=== PATIENT | female | born 1960 | race Hispanic/Latino ===

== ENCOUNTER 2017-12-12 20:25 | Emergency (ER) | payer OTHER, MEDICARE ==
[~2017-12-12 20:25] MED LIST: ALBU8.5H8 IH; DIFL5DRO OU; DULO30CA51 PO; FLUT16H NASAL; GEMF600T3 PO; HYDR25TA PO; INSU100C14 SQ; INSU100V12 SQ; IPRA42SP NS; KETO5DRO82 OD; LISI-617 PO; LOVA20TA3 PO; POLY17PO4 PO; TERB250T51 PO; TYL3 PO
[2017-12-12] MEDS ORDERED: METHYLPREDNISOLONE SOD SUCC 40MG/ML 1ML ONE (21:46)
[2017-12-12] MEDS ORDERED: IPRATROPIUM/ALBUTEROL SULFATE 3 ML SOLUTION IH ONE (21:58)
== END 2017-12-12 22:52 | disposition home or self-care (01) ==
LOC: EDH 20:25
DX: J45.41 Moderate persistent asthma with (acute) exacerbation (principal); E11.9 Type 2 diabetes mellitus without complications; E78.5 Hyperlipidemia, unspecified; I10 Essential (primary) hypertension; M19.90 Unspecified osteoarthritis, unspecified site; Z88.6 Allergy status to analgesic agent; Z79.4 Long term (current) use of insulin
CPT/HCPCS: 71046; 94640; 96372; 99284; J2920

== ENCOUNTER 2018-02-01 21:53 | Emergency (ER) | payer OTHER, MEDICARE ==
[2018-02-01] MEDS ORDERED: DEXAMETHASONE SOD PHOSPHATE 10MG/ML 1ML VIAL ONE (23:40)
[2018-02-01] MEDS ORDERED: KETOROLAC TROMETHAMINE 60 MG/2 ML VIAL ONE (23:40)
[2018-02-01] MEDS ORDERED: HYDROCODONE/ACETAMINOPHEN 10/325 MG TAB ONE (23:41)
== END 2018-02-02 00:15 | disposition home or self-care (01) ==
LOC: EDH 21:53
DX: M54.9 Dorsalgia, unspecified (principal); J45.909 Unspecified asthma, uncomplicated; E11.9 Type 2 diabetes mellitus without complications; I10 Essential (primary) hypertension; E78.5 Hyperlipidemia, unspecified; M19.90 Unspecified osteoarthritis, unspecified site; Z79.4 Long term (current) use of insulin; Z88.6 Allergy status to analgesic agent
CPT/HCPCS: 96372 ×2; 99284; J1100; J1885

== ENCOUNTER → 2018-03-13 | Outpatient (CLI) | payer OTHER, MEDICARE | END | disposition home or self-care (01) | LOC: RAH 09:05 | PROVIDERS: ATTEND Family Medicine | DX: Z12.31 Encounter for screening mammogram for malignant neoplasm of breast (principal) | CPT/HCPCS: 77067 ==

== ENCOUNTER 2019-01-17 23:50 | Emergency (ER) | payer OTHER, MEDICARE ==
[~2019-01-17 23:50] MED LIST changes: -GEMF600T3 PO; +GEMF600T5 PO
[2019-01-18 00:09] LABS: BASOPHILS % (AUTO) 0.9 % (0.0-5.0); HEMATOCRIT 38.6 % (36-48); LYMPHOCYTES % (AUTO) 30.4 % (21.0-51.0); MEAN CORPUSCULAR HEMOGLOBIN 28.2 pg (27.0-33.0); MEAN CORPUSCULAR HGB CONC 33.4 g/dL (32.0-36.0); MEAN CORPUSCULAR VOLUME 84.5 fL (79-99); MONOCYTES % (AUTO) 5.7 % (3.0-13.0); PLATELET COUNT (AUTO) 216 K/uL (130-400); RED BLOOD CELL COUNT(AUTO) 4.57 MIL/uL (4.00-5.50); RED CELL DISTRIBUTION WIDTH 14.6 % (11.0-15.5); WHITE BLOOD COUNT (AUTO) 9.4 K/uL (4.8-10.8)
[2019-01-18] MEDS ORDERED: ASPIRIN 325 MG TABLET ONE (00:10)
[2019-01-18 00:23] LABS: ALBUMIN 3.4 g/dL (3.5-5.0); BILIRUBIN,TOTAL 0.2 mg/dL (0.2-1.0); CREATININE 0.9 mg/dL (0.5-1.5); POTASSIUM 3.5 mmol/L (3.5-5.1); TOTAL PROTEIN, SERUM 7.2 g/dL (6.0-8.3)
[2019-01-18 00:34] LABS: APPEARANCE,URINE CLEAR (CLEAR); BILIRUBIN,URINE NEGATIVE (NEGATIVE); COLOR,URINE YELLOW (YELLOW); GLUCOSE, URINE (UA) >=1000 mg/dL (NEGATIVE); KETONES,URINE NEGATIVE (NEGATIVE); LEUKOCYTE ESTERASE ,URINE NEGATIVE (NEGATIVE); NITRATE,URINE NEGATIVE (NEGATIVE); OCCULT BLOOD,URINE NEGATIVE (NEGATIVE); PROTEIN,URINE TRACE mg/dL (NEGATIVE); UROBILINOGEN,URINE 0.2 mg/dL (0.2-1.0)
[2019-01-18 00:40] LABS: RBC,URINE None Seen /HPF (0-1)
[2019-01-18 00:41] LABS: BACTERIA,URINE Rare /HPF (None Seen); SQUAMOUS EPITHELIAL CELL,UR 0-2 /HPF (0-2)
[2019-01-18 00:54] LABS: INR 0.9 (0.85-1.15); PARTIAL THROMBOPLASTIN TIME 25.9 SEC (26.3-35.5); PROTHROMBIN TIME 9.5 SEC (9.6-11.6)
[2019-01-18] MEDS ORDERED: KETOROLAC TROMETHAMINE 30MG/ML ONE (01:13)
[2019-01-18] MEDS ORDERED: CYCLOBENZAPRINE HCL 10 MG TABLET ONE (01:13)
== END 2019-01-18 02:08 | disposition home or self-care (01) ==
LOC: EDH 23:50
DX: R07.89 Other chest pain (principal); E86.9 Volume depletion, unspecified; B34.9 Viral infection, unspecified; E11.65 Type 2 diabetes mellitus with hyperglycemia; I10 Essential (primary) hypertension; E78.5 Hyperlipidemia, unspecified; J45.909 Unspecified asthma, uncomplicated; M19.90 Unspecified osteoarthritis, unspecified site; F32.9 Major depressive disorder, single episode, unspecified; F41.9 Anxiety disorder, unspecified; Z88.6 Allergy status to analgesic agent; Z87.891 Personal history of nicotine dependence
CPT/HCPCS: 36415; 71046; 80053; 81001; 82550; 82948; 83690; 84484; 85025; 85610; 85730; 87804 ×2; 93005; 96361; 96374; 99284; J1885

== ENCOUNTER → 2019-03-15 | Outpatient (CLI) | payer OTHER, MEDICARE | END | disposition home or self-care (01) | LOC: RAH 09:26 | PROVIDERS: ATTEND Family Medicine | DX: Z12.31 Encounter for screening mammogram for malignant neoplasm of breast (principal) | CPT/HCPCS: 77067 ==

== ENCOUNTER 2019-05-18 04:02 | Emergency (ER) | payer OTHER, MEDICARE ==
[~2019-05-18 04:02] MED LIST changes: -DULO30CA51 PO; +DULO30CA52 PO
[2019-05-18 05:20] LABS: CREATININE 0.7 mg/dL (0.5-1.5); POTASSIUM 3.6 mmol/L (3.5-5.1)
[2019-05-18 05:22] LABS: INR 0.89 (0.85-1.15); PARTIAL THROMBOPLASTIN TIME 25.1 SEC (26.3-35.5); PROTHROMBIN TIME 9.4 SEC (9.6-11.6)
[2019-05-18 05:27] LABS: EOSINOPHILS % (AUTO) 1.4 % (0.0-8.0); LYMPHOCYTES % (AUTO) 37.6 % (21.0-51.0); MEAN CORPUSCULAR HEMOGLOBIN 28.5 pg (27.0-33.0); MEAN CORPUSCULAR HGB CONC 34.1 g/dL (32.0-36.0); MEAN CORPUSCULAR VOLUME 83.5 fL (79-99); MONOCYTES % (AUTO) 5.8 % (3.0-13.0); NEUTROPHILS % (AUTO) 54.2 % (40.0-77.0); NUCLEATED RED BLOOD CELLS 0.2 % (0.0-0.19); PLATELET COUNT (AUTO) 228 K/uL (130-400); RED BLOOD CELL COUNT(AUTO) 4.55 MIL/uL (4.00-5.50); RED CELL DISTRIBUTION WIDTH 14.6 % (11.0-15.5); WHITE BLOOD COUNT (AUTO) 7.6 K/uL (4.8-10.8)
[2019-05-18 05:41] LABS: ALBUMIN 3.4 g/dL (3.5-5.0); BILIRUBIN,TOTAL 0.2 mg/dL (0.2-1.0); TOTAL PROTEIN, SERUM 7.2 g/dL (6.0-8.3)
[2019-05-18] MEDS ORDERED: KETOROLAC TROMETHAMINE 30MG/ML ONE (05:59)
[2019-05-18] MEDS ORDERED: LIDOCAINE 5% TOPICAL PATCH TP ONE (05:59)
== END 2019-05-18 06:17 | disposition home or self-care (01) ==
LOC: EDH 04:02
DX: M54.6 Pain in thoracic spine (principal); M62.830 Muscle spasm of back; M19.90 Unspecified osteoarthritis, unspecified site; J45.909 Unspecified asthma, uncomplicated; E11.9 Type 2 diabetes mellitus without complications; E78.5 Hyperlipidemia, unspecified; I10 Essential (primary) hypertension; F32.9 Major depressive disorder, single episode, unspecified; F41.9 Anxiety disorder, unspecified; Z79.4 Long term (current) use of insulin; Z88.5 Allergy status to narcotic agent
CPT/HCPCS: 36415; 71045; 80053; 83690; 84484; 85025; 85610; 85730; 93005; 96374; 99285; J1885

== ENCOUNTER 2019-09-17 16:49 | Emergency (ER) | payer OTHER, MEDICARE ==
[2019-09-17] MEDS ORDERED: ASPIRIN 325 MG TABLET ONE (17:12)
[2019-09-17] MEDS ORDERED: NITROGLYCERIN 1GM/1 INCH PACKET TD ONE (17:21)
[2019-09-17] MEDS ORDERED: ONDANSETRON HCL 4 MG/2 ML VIAL ONE (17:21)
[2019-09-17 17:26] LABS: BASOPHILS % (AUTO) 1.1 % (0.0-5.0); HEMATOCRIT 38.7 % (36-48); LYMPHOCYTES % (AUTO) 28.6 % (21.0-51.0); MEAN CORPUSCULAR HGB CONC 33.9 g/dL (32.0-36.0); MEAN CORPUSCULAR VOLUME 85.5 fL (79-99); MONOCYTES % (AUTO) 6.2 % (3.0-13.0); NEUTROPHILS % (AUTO) 63.1 % (40.0-77.0); NUCLEATED RED BLOOD CELLS 0.3 % (0.0-0.19); PLATELET COUNT (AUTO) 214 K/uL (130-400); RED BLOOD CELL COUNT(AUTO) 4.52 MIL/uL (4.00-5.50); RED CELL DISTRIBUTION WIDTH 14.1 % (11.0-15.5); WHITE BLOOD COUNT (AUTO) 9.7 K/uL (4.8-10.8)
[2019-09-17 17:43] LABS: CREATININE 0.9 mg/dL (0.5-1.5); INR 0.94 (0.85-1.15); POTASSIUM 3.8 mmol/L (3.5-5.1); PROTHROMBIN TIME 9.9 SEC (9.6-11.6)
[2019-09-17 17:47] LABS: ALBUMIN 3.3 g/dL (3.5-5.0); BILIRUBIN,TOTAL 0.3 mg/dL (0.2-1.0)
[2019-09-17 20:09] LABS: APPEARANCE,URINE Cloudy (CLEAR); BILIRUBIN,URINE Negative (NEGATIVE); COLOR,URINE Yellow (YELLOW); GLUCOSE, URINE (UA) Negative (NEGATIVE); KETONES,URINE Negative (NEGATIVE); LEUKOCYTE ESTERASE ,URINE Large (NEGATIVE); NITRATE,URINE Negative (NEGATIVE); OCCULT BLOOD,URINE Negative (NEGATIVE); PH,URINE 5.5 (5.0-8.0); PROTEIN,URINE Trace mg/dL (NEGATIVE); UROBILINOGEN,URINE 0.2 mg/dL (0.2-1.0)
[2019-09-17 20:13] LABS: AMPHET/METH SCREEN,URINE NEGATIVE (NEGATIVE); BARBITURATE SCREEN, URINE NEGATIVE (NEGATIVE); BENZODIAZEPINES SCREEN,URINE NEGATIVE (NEGATIVE); CANNABINOID SCREEN,URINE NEGATIVE (NEGATIVE); COCAINE SCREEN,URINE NEGATIVE (NEGATIVE); OPIATE SCREEN,URINE NEGATIVE (NEGATIVE); PHENCYCLIDINE SCREEN,URINE NEGATIVE (NEGATIVE)
[2019-09-17 20:27] LABS: BACTERIA,URINE Moderate /HPF (None Seen); RBC,URINE 0-1 /HPF (0-1)
[2019-09-17 20:28] LABS: MUCUS,URINE Few LPF (None Seen)
== END 2019-09-17 20:48 | disposition home or self-care (01) ==
LOC: EDH 16:49
DX: J45.909 Unspecified asthma, uncomplicated (principal); R07.89 Other chest pain; E11.9 Type 2 diabetes mellitus without complications; E78.5 Hyperlipidemia, unspecified; F41.9 Anxiety disorder, unspecified; F32.9 Major depressive disorder, single episode, unspecified; I10 Essential (primary) hypertension; I25.2 Old myocardial infarction; Z79.4 Long term (current) use of insulin; Z88.5 Allergy status to narcotic agent; Z90.710 Acquired absence of both cervix and uterus
CPT/HCPCS: 36415; 71045; 80053; 80305; 81001; 82150; 82550; 83690; 84484 ×2; 85025; 85610; 85730; 93005 ×2; 96374; 99285; J2405

== ENCOUNTER 2019-11-09 16:13 | Emergency (ER) | payer OTHER, MEDICARE | END 2019-11-09 16:37 | disposition home or self-care (01) | LOC: EDH 16:13 | DX: L72.3 Sebaceous cyst (principal); J45.909 Unspecified asthma, uncomplicated; F41.9 Anxiety disorder, unspecified; F32.9 Major depressive disorder, single episode, unspecified; E11.9 Type 2 diabetes mellitus without complications; E78.5 Hyperlipidemia, unspecified; I10 Essential (primary) hypertension; I25.2 Old myocardial infarction; Z79.4 Long term (current) use of insulin; Z90.710 Acquired absence of both cervix and uterus | CPT/HCPCS: 99281 ==

== ENCOUNTER 2019-12-04 00:57 | Observation (INO) | payer OTHER, MEDICARE ==
[~2019-12-04] VITALS: Ht 162.6 cm; Wt 92.1 kg
[2019-12-04 01:13] LABS: BASOPHILS % (AUTO) 1.1 % (0.0-5.0); EOSINOPHILS % (AUTO) 1.2 % (0.0-8.0); HEMATOCRIT 37.2 % (36-48); LYMPHOCYTES % (AUTO) 35.5 % (21.0-51.0); MEAN CORPUSCULAR HEMOGLOBIN 27.5 pg (27.0-33.0); MEAN CORPUSCULAR HGB CONC 32.8 g/dL (32.0-36.0); MEAN CORPUSCULAR VOLUME 83.8 fL (79-99); MONOCYTES % (AUTO) 6.1 % (3.0-13.0); NEUTROPHILS % (AUTO) 55.6 % (40.0-77.0); PLATELET COUNT (AUTO) 219 K/uL (130-400); RED BLOOD CELL COUNT(AUTO) 4.44 MIL/uL (4.00-5.50); RED CELL DISTRIBUTION WIDTH 13.8 % (11.0-15.5); WHITE BLOOD COUNT (AUTO) 9.1 K/uL (4.8-10.8)
[2019-12-04 01:24] LABS: CREATININE 0.7 mg/dL (0.5-1.5); POTASSIUM 3.7 mmol/L (3.5-5.1)
[2019-12-04] MEDS ORDERED: ASPIRIN 325 MG TABLET ONE (01:24)
[2019-12-04 01:28] LABS: INR 0.95 (0.85-1.15); PARTIAL THROMBOPLASTIN TIME 23.5 SEC (26.3-35.5)
[2019-12-04 01:29] LABS: ALBUMIN 3.2 g/dL (3.5-5.0); BILIRUBIN,TOTAL 0.2 mg/dL (0.2-1.0)
[2019-12-04] MEDS ORDERED: ONDANSETRON HCL 4 MG/2 ML VIAL IVP PRN (04:00)
[2019-12-04] MEDS ORDERED: ACETAMINOPHEN 325 MG TAB PO PRN (04:00)
[2019-12-04] MEDS ORDERED: NITROGLYCERIN 0.4 MG SL TAB SL PRN (04:15)
[2019-12-04 05:08] VITALS: BP 141/84
[2019-12-04] MEDS: ENOXAPARIN SODIUM 100 MG/1 ML SQ SCH ×2 (06:27→16:49)
--- NOTE | 2019-12-04 07:30 | NUR ---
ASSESSMENT ENCOUNTERED PT ASLEEP BUT AROUSEABLE, A&OX3, CALM COOPERATIVE AND DOES NOT APPEAR TO BE IN ANY DISTRESS NOR ANY NEURO DEFICITS PRESENT. PT DENIES PAIN, SOB, NAUSEA. PT IS AMBULATORY, GAIT SLOW BUT STEADY WITH STAND BY ASSIST. CALL LIGHT WITHIN REACH.
[2019-12-04 07:45] VITALS: BP 136/88
[2019-12-04 08:16] LABS: CREATINE KINASE, TOTAL 65 U/L (21-232); MYOGLOBIN 28 ng/mL (10-92); TROPONIN I < 0.04 ng/mL (0.00-0.06)
[2019-12-04] MEDS ORDERED: IPRA3AMP24 PUFF (11:38)
[2019-12-04] MEDS ORDERED: FLUT16H NASAL (11:38)
[2019-12-04] MEDS ORDERED: INSU100V12 SQ (11:38)
[2019-12-04] MEDS ORDERED: OMEP40CA13 PO (11:38)
[2019-12-04] MEDS ORDERED: LISI-617 PO (11:38)
[2019-12-04] MEDS ORDERED: INSU100I21 SQ (11:38)
[2019-12-04] MEDS ORDERED: ATOR20TA65 PO (11:38)
[2019-12-04] MEDS ORDERED: FLUT250D3 PUFF (11:38)
[2019-12-04] MEDS ORDERED: ALBU90AE PUFF (11:38)
[2019-12-04] MEDS ORDERED: INSU100I15 SQ ×2 (11:38)
[2019-12-04] MEDS ORDERED: HYDR25TA PO (11:38)
[2019-12-04] MEDS ORDERED: PIOG15TA66 PO (11:38)
[2019-12-04] MEDS ORDERED: NITR0.4T50 SL (11:38)
[2019-12-04] MEDS ORDERED: LUBI24CA2 PO (11:38)
[2019-12-04 11:48] VITALS: BP 148/78
[2019-12-04 14:00] LABS: CREATINE KINASE, TOTAL 57 U/L (21-232); MYOGLOBIN 28 ng/mL (10-92); TROPONIN I < 0.04 ng/mL (0.00-0.06)
[2019-12-04] MEDS ORDERED: GLUCAGON 1MG KIT 1 MG ML IM PRN (14:00)
[2019-12-04] MEDS ORDERED: IPRATROPIUM/ALBUTEROL SULFATE 3 ML SOLUTION IH PRN (14:00)
[2019-12-04] MEDS ORDERED: DEXTROSE 50%-WATER 50 ML DISP.SYRIN IV PRN (14:00)
[2019-12-04 15:33] VITALS: BP 184/81
[2019-12-04] MEDS ORDERED: HYDROCHLOROTHIAZIDE 25 MG TABLET ONE (16:36)
[2019-12-04] MEDS ORDERED: LISINOPRIL 5 MG TABLET ONE (16:37)
[2019-12-04] MEDS: PANTOPRAZOLE SODIUM 40 MG TABLET.DR PO SCH (16:43)
[2019-12-04] MEDS: ASPIRIN 325MG EC TAB 325 MG TABLET.DR PO SCH (16:44)
[2019-12-04] MEDS: INSULIN HUMULIN R 100 UNIT/ML 3ML SQ SCH ×2 (16:49→21:07)
[2019-12-04 19:00] VITALS: BP 151/82
[2019-12-04] MEDS: ATORVASTATIN CALCIUM 20 MG TABLET PO SCH (20:35)
[2019-12-04] MEDS: LUBIPROSTONE 24 MCG CAP PO SCH (20:35)
[2019-12-04 23:00] VITALS: BP 133/69
[2019-12-05 03:00] VITALS: BP 129/80
[2019-12-05 04:22] LABS: HEMATOCRIT 36.1 % (36-48); MEAN CORPUSCULAR HEMOGLOBIN 27.5 pg (27.0-33.0); MEAN CORPUSCULAR VOLUME 83.4 fL (79-99); PLATELET COUNT (AUTO) 191 K/uL (130-400); RED BLOOD CELL COUNT(AUTO) 4.33 MIL/uL (4.00-5.50); RED CELL DISTRIBUTION WIDTH 13.8 % (11.0-15.5); WHITE BLOOD COUNT (AUTO) 7.4 K/uL (4.8-10.8)
[2019-12-05 04:33] LABS: CREATININE 0.7 mg/dL (0.5-1.5); POTASSIUM 3.6 mmol/L (3.5-5.1)
[2019-12-05] MEDS: INSULIN LISPRO 100 UNIT/ML 3ML SQ SCH (05:02)
[2019-12-05] MEDS: INSULIN HUMULIN R 100 UNIT/ML 3ML SQ SCH ×4 (05:02→21:34)
[2019-12-05] MEDS: ENOXAPARIN SODIUM 100 MG/1 ML SQ SCH ×2 (05:51→16:39)
--- NOTE | 2019-12-05 07:20 | NUR ---
ASSESSMENT ENCOUNTERED PT ASLEEP BUT AROUSEABLE, A&OX3, CALM COOPERATIVE AND DOES NOT APPEAR TO BE IN ANY DISTRESS NOR ANY NEURO DEFICITS PRESENT. PT DENIES PAIN, SOB, NAUSEA. PT IS AMBULATORY, GAIT SLOW BUT STEADY WITH STAND BY ASSIST. PT IS NPO FOR PENDING LEXISCAN. CALL LIGHT WITHIN REACH.
[2019-12-05 07:41] VITALS: BP 118/62
[2019-12-05] MEDS ORDERED: REGADENOSON 0.4 MG/5 ML PF SYG IVP SCH (08:00)
[2019-12-05 12:37] VITALS: BP 128/68
[2019-12-05] MEDS: PANTOPRAZOLE SODIUM 40 MG TABLET.DR PO SCH (12:48)
[2019-12-05] MEDS: ASPIRIN 325MG EC TAB 325 MG TABLET.DR PO SCH (12:48)
[2019-12-05] MEDS: LISINOPRIL 5 MG TABLET PO SCH (12:48)
[2019-12-05] MEDS: HYDROCHLOROTHIAZIDE 25 MG TABLET PO SCH (14:07)
[2019-12-05] MEDS: LUBIPROSTONE 24 MCG CAP PO SCH ×2 (14:07→21:31)
[2019-12-05 15:18] VITALS: BP 122/70
--- NOTE | 2019-12-05 19:22 | NUR ---
INITIAL: Met with pt and spouse this afternoon to discuss dcp. Pt mentions that prior to admission she was using a cane @ times for ambulation. She requires assist w ADLs. She has provider services 1 1/2hr/day. Per pt she has at home a chair and nebulizer. Pt mentions that she also attends [facility] @ [place] from 8am-1pm. Per pt she feels safe and comfortable to return home at mi. CM to continue to follow and wait for Md recommendations. Addendum: 12/05/19 at 1924 by OMARI LICEA Amended: Links added.
[2019-12-05 19:53] VITALS: BP 146/75
[2019-12-05] MEDS: ATORVASTATIN CALCIUM 20 MG TABLET PO SCH (21:32)
[2019-12-05 23:57] VITALS: BP 134/81
[2019-12-06 04:04] VITALS: BP 111/64
[2019-12-06] MEDS: ENOXAPARIN SODIUM 100 MG/1 ML SQ SCH (06:50)
[2019-12-06] MEDS: INSULIN HUMULIN R 100 UNIT/ML 3ML SQ SCH ×2 (06:51→12:53)
[2019-12-06] MEDS: INSULIN LISPRO 100 UNIT/ML 3ML SQ SCH (06:51)
[2019-12-06 07:00] VITALS: BP 132/87
[2019-12-06] MEDS: PANTOPRAZOLE SODIUM 40 MG TABLET.DR PO SCH (09:25)
[2019-12-06] MEDS: LUBIPROSTONE 24 MCG CAP PO SCH (09:25)
[2019-12-06] MEDS: HYDROCHLOROTHIAZIDE 25 MG TABLET PO SCH (09:26)
[2019-12-06] MEDS: ASPIRIN 325MG EC TAB 325 MG TABLET.DR PO SCH (09:26)
[2019-12-06] MEDS: LISINOPRIL 5 MG TABLET PO SCH (09:26)
[2019-12-06 11:00] VITALS: BP 117/75
== END 2019-12-06 15:10 | disposition home or self-care (01) ==
LOC: EDH 00:57 → EDHIP 03:23 → 2DH 04:22
PROVIDERS: ADMIT Internal Medicine; ATTEND Internal Medicine
DX: I20.0 Unstable angina (principal); F41.9 Anxiety disorder, unspecified; J45.909 Unspecified asthma, uncomplicated; F32.9 Major depressive disorder, single episode, unspecified; E11.9 Type 2 diabetes mellitus without complications; Z79.4 Long term (current) use of insulin; E78.5 Hyperlipidemia, unspecified; I10 Essential (primary) hypertension; I25.2 Old myocardial infarction; E66.9 Obesity, unspecified; G43.909 Migraine, unspecified, not intractable, without status migrainosus; G47.33 Obstructive sleep apnea (adult) (pediatric); M19.90 Unspecified osteoarthritis, unspecified site; Z90.710 Acquired absence of both cervix and uterus; Z79.51 Long term (current) use of inhaled steroids; Z79.82 Long term (current) use of aspirin; Z79.899 Other long term (current) drug therapy; Z88.5 Allergy status to narcotic agent; Z68.34 Body mass index [BMI] 34.0-34.9, adult
CPT/HCPCS: 36415 ×2; 71045; 78452; 80048; 80053; 82550 ×3; 82948 ×8; 83874 ×2; 84484 ×3; 85025; 85027; 85610; 85730; 93005; 93017; 94640; 94664; 96372 ×3; 96374; 99284; A9500 ×2; G0378 ×56; J1650 ×5; J1815 ×6; J2405; J2785

== ENCOUNTER → 2020-07-10 | Outpatient (CLI) | payer OTHER, MEDICARE ==
[~2020-07-10] MED LIST changes: -ALBU8.5H8 IH; +ALBU90AE PUFF; +ATOR20TA65 PO; -DIFL5DRO OU; -DULO30CA52 PO; +FLUT250D3 PUFF; -GEMF600T5 PO; -INSU100C14 SQ; +INSU100I15 SQ; +INSU100I21 SQ; +IPRA3AMP24 PUFF; -IPRA42SP NS; -KETO5DRO82 OD; -LOVA20TA3 PO; +LUBI24CA2 PO; +NITR0.4T50 SL; +OMEP40CA13 PO; +PIOG15TA66 PO; -POLY17PO4 PO; -TERB250T51 PO; -TYL3 PO
== END | disposition home or self-care (01) ==
LOC: RAH 14:10
PROVIDERS: ATTEND Family Medicine
DX: Z12.31 Encounter for screening mammogram for malignant neoplasm of breast (principal); N64.89 Other specified disorders of breast
CPT/HCPCS: 77067

== ENCOUNTER 2021-01-12 21:33 | Emergency (ER) | payer OTHER, MEDICARE ==
[~2021-01-12 21:33] MED LIST changes: -LISI-617 PO; +LISI-809 PO
[2021-01-12] MEDS ORDERED: ORPHENADRINE CITRATE 30 MG/ML ML ONE (22:23)
[2021-01-12] MEDS ORDERED: KETOROLAC TROMETHAMINE 30MG/ML ONE (22:24)
== END 2021-01-13 00:08 | disposition home or self-care (01) ==
LOC: EDH 21:33
DX: S40.012A Contusion of left shoulder, initial encounter (principal); S80.11XA Contusion of right lower leg, initial encounter; M19.90 Unspecified osteoarthritis, unspecified site; F32.9 Major depressive disorder, single episode, unspecified; E11.9 Type 2 diabetes mellitus without complications; J45.909 Unspecified asthma, uncomplicated; F41.9 Anxiety disorder, unspecified; E78.5 Hyperlipidemia, unspecified; I10 Essential (primary) hypertension; I25.2 Old myocardial infarction; Z90.49 Acquired absence of other specified parts of digestive tract; Z90.710 Acquired absence of both cervix and uterus; Z88.5 Allergy status to narcotic agent; W18.39XA Other fall on same level, initial encounter; Y93.01 Activity, walking, marching and hiking; Y92.89 Other specified places as the place of occurrence of the external cause; Y99.8 Other external cause status
CPT/HCPCS: 73030; 73590; 96372 ×2; 99284; J1885; J2360

== ENCOUNTER → 2021-08-13 | Outpatient (CLI) | payer OTHER, MEDICARE ==
[~2021-08-13] MED LIST changes: +FLUT250D2 PUFF; -FLUT250D3 PUFF; -OMEP40CA13 PO; +OMEP40CA21 PO
== END | disposition home or self-care (01) ==
LOC: RAH 15:02
PROVIDERS: ATTEND Family Medicine
DX: Z12.31 Encounter for screening mammogram for malignant neoplasm of breast (principal)
CPT/HCPCS: 77067

== ENCOUNTER 2022-04-23 07:41 | Emergency (ER) | payer OTHER, MEDICARE ==
[~2022-04-23] VITALS: Ht 162.6 cm; Wt 82.1 kg
[~2022-04-23 07:41] MED LIST changes: -LISI-809 PO; +LISI5TAB21 PO
[2022-04-23 08:09] LABS: BASOPHILS % (AUTO) 0.7 % (0.0-5.0); HEMATOCRIT 39.2 % (36-48); LYMPHOCYTES % (AUTO) 10.4 % (21.0-51.0); MEAN CORPUSCULAR HEMOGLOBIN 27.7 pg (27.0-33.0); MEAN CORPUSCULAR HGB CONC 33.2 g/dL (32.0-36.0); MEAN CORPUSCULAR VOLUME 83.4 fL (79-99); MONOCYTES % (AUTO) 0.6 % (3.0-13.0); NEUTROPHILS % (AUTO) 87.5 % (40.0-77.0); PLATELET COUNT (AUTO) 228 K/uL (130-400); RED CELL DISTRIBUTION WIDTH 13.8 % (11.0-15.5); WHITE BLOOD COUNT (AUTO) 9.1 K/uL (4.8-10.8)
[2022-04-23 08:27] LABS: ALBUMIN 3.6 g/dL (3.5-5.0); POTASSIUM 4.3 mmol/L (3.5-5.1)
[2022-04-23 08:29] LABS: BILIRUBIN,TOTAL 0.3 mg/dL (0.2-1.0); TOTAL PROTEIN, SERUM 7.5 g/dL (6.0-8.3)
[2022-04-23] MEDS ORDERED: 0.9%NACL 1000ML 1,000 ML IV ONE (09:30)
[2022-04-23] MEDS ORDERED: INSULIN HUMULIN R 100 UNIT/ML 3ML IV ONE ×2 (09:30→10:00)
[2022-04-23 10:21] LABS: APPEARANCE,URINE Clear (CLEAR); BILIRUBIN,URINE Negative (NEGATIVE); COLOR,URINE Yellow (YELLOW); GLUCOSE, URINE (UA) >=1000 mg/dL (NEGATIVE); KETONES,URINE Trace mg/dL (NEGATIVE); LEUKOCYTE ESTERASE ,URINE Negative (NEGATIVE); NITRATE,URINE Negative (NEGATIVE); OCCULT BLOOD,URINE Negative (NEGATIVE); PH,URINE 5.5 (5.0-8.0); PROTEIN,URINE POS 1+ mg/dL (NEGATIVE); UROBILINOGEN,URINE 0.2 mg/dL (0.2-1.0)
[2022-04-23] MEDS ORDERED: ACETAMINOPHEN 500 MG TABLET PO ONE (10:30)
[2022-04-23 10:50] VITALS: BP 158/80
[2022-04-23 11:01] LABS: BACTERIA,URINE Rare /HPF (None Seen); RBC,URINE 0-1 /HPF (0-1); SQUAMOUS EPITHELIAL CELL,UR Rare /HPF (0-2); WBC,URINE 0-1 /HPF (0-1)
[2022-04-23] MEDS ORDERED: ONDANSETRON ODT 4MG TAB SL ONE (11:30)
== END 2022-04-23 11:19 | disposition home or self-care (01) ==
LOC: EDH 07:41
DX: E11.65 Type 2 diabetes mellitus with hyperglycemia (principal); F41.9 Anxiety disorder, unspecified; J45.909 Unspecified asthma, uncomplicated; E78.00 Pure hypercholesterolemia, unspecified; Z88.6 Allergy status to analgesic agent; Z79.899 Other long term (current) drug therapy; Z79.4 Long term (current) use of insulin; Z79.84 Long term (current) use of oral hypoglycemic drugs; Z98.890 Other specified postprocedural states
CPT/HCPCS: 36415; 80053; 81001; 82948 ×2; 85025; 96361; 96374; 96376; 99284; J1815 ×2; J7030

== ENCOUNTER 2023-02-21 19:23 | Emergency (ER) | payer OTHER, MEDICARE ==
[~2023-02-21] VITALS: Ht 162.6 cm; Wt 81.6 kg
[~2023-02-21 19:23] MED LIST changes: -INSU100I21 SQ; +INSU100I22 SQ
[2023-02-21 20:20] LABS: BASOPHILS % (AUTO) 0.9 % (0.0-5.0); EOSINOPHILS % (AUTO) 1.1 % (0.0-8.0); HEMATOCRIT 37.9 % (36-48); LYMPHOCYTES % (AUTO) 27.5 % (21.0-51.0); MEAN CORPUSCULAR HEMOGLOBIN 28.2 pg (27.0-33.0); MEAN CORPUSCULAR HGB CONC 33.5 g/dL (32.0-36.0); NEUTROPHILS % (AUTO) 64.1 % (40.0-77.0); PLATELET COUNT (AUTO) 216 K/uL (130-400); RED BLOOD CELL COUNT(AUTO) 4.51 MIL/uL (4.00-5.50); RED CELL DISTRIBUTION WIDTH 14.4 % (11.0-15.5)
[2023-02-21 20:38] LABS: CREATININE 0.9 mg/dL (0.5-1.5); POTASSIUM 3.9 mmol/L (3.5-5.1)
[2023-02-21 20:42] LABS: ALBUMIN 3.5 g/dL (3.5-5.0); TOTAL PROTEIN, SERUM 7.4 g/dL (6.0-8.3)
[2023-02-21] MEDS ORDERED: METOCLOPRAMIDE 10 MG/2 ML VIAL IVP ONE (23:30)
[2023-02-21] MEDS ORDERED: DiphenhydrAMINE HCL 50 MG/ML VIAL IV ONE (23:30)
[2023-02-22 00:15] VITALS: BP 160/79
== END 2023-02-22 01:32 | disposition home or self-care (01) ==
LOC: EDH 19:23
DX: G43.909 Migraine, unspecified, not intractable, without status migrainosus (principal); I10 Essential (primary) hypertension; E11.9 Type 2 diabetes mellitus without complications; E78.00 Pure hypercholesterolemia, unspecified; J45.909 Unspecified asthma, uncomplicated; F41.9 Anxiety disorder, unspecified; Z79.51 Long term (current) use of inhaled steroids; Z79.84 Long term (current) use of oral hypoglycemic drugs; Z79.899 Other long term (current) drug therapy; Z88.5 Allergy status to narcotic agent
CPT/HCPCS: 99285; 96374; 70450; 71045; 96375; 84484; 80053; 85025; 36415; 93005; J1200; J2765

== ENCOUNTER 2023-09-08 22:31 | Emergency (ER) | payer OTHER, MEDICARE ==
[~2023-09-08] VITALS: Ht 162.6 cm; Wt 84.8 kg
[2023-09-08] MEDS ORDERED: KETOROLAC 60 MG VIAL (30MG/ML) IM ONE (23:00)
[2023-09-08] MEDS ORDERED: IBUP-2070 PO (23:57)
[2023-09-08] MEDS ORDERED: CYCL5TAB PO (23:57)
[2023-09-09] MEDS ORDERED: CYCLOBENZAPRINE HCL 10 MG TABLET PO ONE
[2023-09-09 00:10] VITALS: BP 148/77; PULSE 72; RESP 16; O2SAT 99
== END 2023-09-09 00:14 | disposition home or self-care (01) ==
LOC: EDH 22:31
DX: M16.11 Unilateral primary osteoarthritis, right hip (principal); J45.909 Unspecified asthma, uncomplicated; E11.9 Type 2 diabetes mellitus without complications; I10 Essential (primary) hypertension; Z79.51 Long term (current) use of inhaled steroids; Z79.84 Long term (current) use of oral hypoglycemic drugs; Z79.899 Other long term (current) drug therapy; Z88.5 Allergy status to narcotic agent
CPT/HCPCS: 99283; 73502; 96372; J1885

== ENCOUNTER → 2023-12-12 | Outpatient (CLI) | payer OTHER ==
[~2023-12-12] MED LIST changes: +CYCL5TAB PO; +IBUP-2070 PO
== END | disposition home or self-care (01) ==
LOC: RAH 14:06
PROVIDERS: ATTEND Family Medicine
DX: Z12.31 Encounter for screening mammogram for malignant neoplasm of breast (principal); R92.323 Mammographic fibroglandular density, bilateral breasts
CPT/HCPCS: 77067

== ENCOUNTER 2024-01-28 12:09 | Emergency (ER) | payer OTHER ==
[~2024-01-28] VITALS: Ht 160 cm; Wt 83.5 kg
[2024-01-28] MEDS ORDERED: HYDR50CA50 PO (17:27)
[2024-01-28] MEDS ORDERED: MELO-106 PO (17:27)
[2024-01-28 17:52] VITALS: BP 145/84; PULSE 78; RESP 18; O2SAT 96
== END 2024-01-28 17:53 | disposition home or self-care (01) ==
LOC: EDH 12:09
DX: R07.89 Other chest pain (principal); F41.9 Anxiety disorder, unspecified; I10 Essential (primary) hypertension; E11.9 Type 2 diabetes mellitus without complications; J45.909 Unspecified asthma, uncomplicated; Z79.899 Other long term (current) drug therapy; Z90.49 Acquired absence of other specified parts of digestive tract; Z90.710 Acquired absence of both cervix and uterus; Z98.890 Other specified postprocedural states; Z88.5 Allergy status to narcotic agent; V89.2XXA Person injured in unspecified motor-vehicle accident, traffic, initial encounter; Y93.I9 Activity, other involving external motion; Y92.488 Other paved roadways as the place of occurrence of the external cause; Y99.8 Other external cause status
CPT/HCPCS: 71045; 93005

== ENCOUNTER 2024-04-27 12:32 | Emergency (ER) | payer OTHER ==
[~2024-04-27] VITALS: Ht 160 cm; Wt 84.8 kg
[~2024-04-27 12:32] MED LIST changes: +HYDR50CA50 PO; +MELO-106 PO
[2024-04-27] MEDS: ACETAMINOPHEN 500 MG TABLET PO ONE (12:44)
[2024-04-27 13:15] LABS: BASOPHILS # (AUTO) 0.09 K/uL (0.00-0.20); BASOPHILS % (AUTO) 1.1 % (0.0-5.0); EOSINOPHILS # (AUTO) 0.09 K/uL (0.00-0.70); EOSINOPHILS % (AUTO) 1.1 % (0.0-8.0); HEMATOCRIT 36.5 % (36-48); IMMATURE GRANULOCYTE ABSOLUTE 0.03 K/uL (0-1); LYMPHOCYTES # (AUTO) 2.4 K/uL (1.0-4.8); LYMPHOCYTES % (AUTO) 29.9 % (21.0-51.0); MEAN CORPUSCULAR HEMOGLOBIN 27.7 pg (27.0-33.0); MEAN CORPUSCULAR HGB CONC 33.4 g/dL (32.0-36.0); MONOCYTES # (AUTO) 0.5 K/uL (0.1-1.0); MONOCYTES % (AUTO) 5.7 % (3.0-13.0); NEUTROPHILS % (AUTO) 61.8 % (40.0-77.0); PLATELET COUNT (AUTO) 194 K/uL (130-400); RED CELL DISTRIBUTION WIDTH 13.8 % (11.0-15.5)
[2024-04-27 13:26] LABS: CREATININE 0.7 mg/dL (0.5-1.0); POTASSIUM 3.9 mmol/L (3.5-5.1)
[2024-04-27 13:31] LABS: ALBUMIN 3.7 g/dL (3.5-5.0); BILIRUBIN,TOTAL 0.3 mg/dL (0.2-1.0); TOTAL PROTEIN, SERUM 7.1 g/dL (6.0-8.3)
[2024-04-27 14:23] VITALS: BP 144/84; PULSE 68; RESP 18; O2SAT 97
== END 2024-04-27 14:50 | disposition home or self-care (01) ==
LOC: EDH 12:32
DX: I10 Essential (primary) hypertension (principal); E11.9 Type 2 diabetes mellitus without complications; J45.909 Unspecified asthma, uncomplicated; Z79.84 Long term (current) use of oral hypoglycemic drugs; Z79.899 Other long term (current) drug therapy; Z90.710 Acquired absence of both cervix and uterus; Z98.890 Other specified postprocedural states; Z88.5 Allergy status to narcotic agent
CPT/HCPCS: 36415; 80053; 84484; 85025; 93005

== ENCOUNTER 2024-05-27 19:34 | Emergency (ER) | payer OTHER ==
[~2024-05-27] VITALS: Ht 160 cm; Wt 84.8 kg
[2024-05-27 20:54] LABS: BASOPHILS # (AUTO) 0.11 K/uL (0.00-0.20); BASOPHILS % (AUTO) 0.9 % (0.0-5.0); EOSINOPHILS # (AUTO) 0.12 K/uL (0.00-0.70); IMMATURE GRANULOCYTE ABSOLUTE 0.05 K/uL (0-1); LYMPHOCYTES # (AUTO) 2.7 K/uL (1.0-4.8); LYMPHOCYTES % (AUTO) 21.3 % (21.0-51.0); MEAN CORPUSCULAR HEMOGLOBIN 28.5 pg (27.0-33.0); MEAN CORPUSCULAR HGB CONC 33.6 g/dL (32.0-36.0); MONOCYTES # (AUTO) 0.7 K/uL (0.1-1.0); MONOCYTES % (AUTO) 5.9 % (3.0-13.0); NEUTROPHILS # (AUTO) 8.9 K/uL (1.8-7.7); NEUTROPHILS % (AUTO) 70.5 % (40.0-77.0); PLATELET COUNT (AUTO) 230 K/uL (130-400); RED BLOOD CELL COUNT(AUTO) 4.59 MIL/uL (4.00-5.50); RED CELL DISTRIBUTION WIDTH 14.1 % (11.0-15.5); WHITE BLOOD COUNT (AUTO) 12.6 K/uL (4.8-10.8)
[2024-05-27 21:10] LABS: CREATININE 1.1 mg/dL (0.5-1.0); POTASSIUM 3.9 mmol/L (3.5-5.1)
[2024-05-27 21:15] LABS: ALBUMIN 3.3 g/dL (3.5-5.0); BILIRUBIN,TOTAL 0.3 mg/dL (0.2-1.0)
[2024-05-27] MEDS: 0.9%NACL 1000ML 1,000 ML IV ONE (21:17)
[2024-05-27] MEDS: PANTOPRAZOLE 40 MG/VIAL IVP ONE (21:17)
[2024-05-27 22:36] VITALS: BP 120/65; PULSE 75; RESP 18; O2SAT 98
== END 2024-05-27 22:45 | disposition home or self-care (01) ==
LOC: EDBD 19:34 → EDH 19:34
DX: K62.5 Hemorrhage of anus and rectum (principal); I10 Essential (primary) hypertension; E11.9 Type 2 diabetes mellitus without complications; E11.65 Type 2 diabetes mellitus with hyperglycemia; J45.909 Unspecified asthma, uncomplicated; E78.00 Pure hypercholesterolemia, unspecified; F41.9 Anxiety disorder, unspecified; Z88.5 Allergy status to narcotic agent; Z79.4 Long term (current) use of insulin; Z79.899 Other long term (current) drug therapy; Z98.890 Other specified postprocedural states
CPT/HCPCS: 99283; 80053; 85025; 82270; 36415; 96374; 96361; J7030; J2470

== ENCOUNTER → 2024-12-03 | Outpatient (CLI) | payer OTHER ==
[~2024-12-03] MED LIST changes: -CYCL5TAB PO; +CYCL5TAB3 PO
--- NOTE | 2024-12-03 09:55 | HMCIMG ---
Exam Type: MR KNEE RIGHT WO Clinical Information: PAIN RIGHT KNEE Comparison: None Technique: MRI of the knee was done with triplane localizer, axial T2 as well as sagittal proton density T2, T1, and fat-saturated T2. In addition, coronal T1 and coronal fat-saturated spin-echo sequences are available for review. FINDINGS: There is a complex tear of the posterior horn of the lateral meniscus with inferior articular surface involvement. No other meniscal tears are present. No effusions are identified. No bony abnormalities are seen. The articular cartilage is preserved. The cruciate and collateral ligaments are intact. No periarticular soft tissue abnormalities are seen. There are no other gross abnormalities. IMPRESSION: Complex tear posterior horn lateral meniscus with inferior articular surface involvement.
== END | disposition home or self-care (01) ==
LOC: RAH 07:36
PROVIDERS: ATTEND Family Medicine
DX: S83.271A Complex tear of lateral meniscus, current injury, right knee, initial encounter (principal); S83.241A Other tear of medial meniscus, current injury, right knee, initial encounter; M25.561 Pain in right knee; M17.11 Unilateral primary osteoarthritis, right knee; G89.29 Other chronic pain; X58.XXXA Exposure to other specified factors, initial encounter; Y93.89 Activity, other specified; Y92.89 Other specified places as the place of occurrence of the external cause; Y99.8 Other external cause status
CPT/HCPCS: 73721